=== PATIENT | male | born 1995 | race African-American/Black ===

== ENCOUNTER 2019-10-18 20:37 | Emergency (ER) | payer SELFPAY ==
[2019-10-18 22:00] LABS: BASOPHILS % (AUTO) 0.2 % (0.0-5.0); EOSINOPHILS % (AUTO) 2.2 % (0.0-8.0); HEMATOCRIT 45.2 % (42-54); LYMPHOCYTES % (AUTO) 38.7 % (21.0-51.0); MEAN CORPUSCULAR HEMOGLOBIN 28.7 pg (27.0-33.0); MEAN CORPUSCULAR HGB CONC 32.5 g/dL (32.0-36.0); MEAN CORPUSCULAR VOLUME 88.3 fL (79-99); MONOCYTES % (AUTO) 14.9 % (3.0-13.0); NEUTROPHILS % (AUTO) 43.8 % (40.0-77.0); PLATELET COUNT (AUTO) 204 K/uL (130-400); RED BLOOD CELL COUNT(AUTO) 5.12 MIL/uL (4.50-6.20); RED CELL DISTRIBUTION WIDTH 12.7 % (11.0-15.5); WHITE BLOOD COUNT (AUTO) 5.1 K/uL (4.8-10.8)
[2019-10-18 22:08] LABS: POTASSIUM 4.1 mmol/L (3.5-5.1)
[2019-10-18 22:15] LABS: ALBUMIN 3.6 g/dL (3.5-5.0); BILIRUBIN,TOTAL 0.2 mg/dL (0.2-1.0); TOTAL PROTEIN, SERUM 7.2 g/dL (6.0-8.3)
[2019-10-18 22:19] LABS: RAPID GROUP A STREP NEGATIVE (NEGATIVE)
== END 2019-10-18 22:36 | disposition home or self-care (01) ==
LOC: EDH 20:37
DX: J10.1 Influenza due to other identified influenza virus with other respiratory manifestations (principal); R11.10 Vomiting, unspecified
CPT/HCPCS: 36415; 71046; 80053; 85025; 87804; 87880

== ENCOUNTER 2023-03-10 19:34 | Emergency (ER) | payer BC, OTHER ==
[~2023-03-10] VITALS: Ht 182.9 cm; Wt 117.9 kg
[2023-03-10 20:07] VITALS: BP 135/83
[2023-03-10] MEDS ORDERED: TETANUS/DIPHTHERIA TOXOID [ADULT] 0.5 ML VIAL IM ONE (20:30)
[2023-03-10] MEDS ORDERED: LIDOCAINE HCL 1% 20 ML VIAL INJ SCH (21:00)
[2023-03-10] MEDS ORDERED: CEPH500T PO (21:36)
== END 2023-03-10 21:47 | disposition home or self-care (01) ==
LOC: EDH 19:34
DX: S81.811A Laceration without foreign body, right lower leg, initial encounter (principal); W26.8XXA Contact with other sharp object(s), not elsewhere classified, initial encounter; Y93.89 Activity, other specified; Y92.89 Other specified places as the place of occurrence of the external cause; Y99.8 Other external cause status
CPT/HCPCS: 12001; 12002; 73590; 90471; 90714